=== PATIENT | female | born 1945 ===

== ENCOUNTER 2020-05-01 07:21 | Outpatient (CLI) | payer OTHER | END 2020-05-01 07:26 | disposition home or self-care (01) | LOC: RX STUDY 07:21 | PROVIDERS: ATTEND Colon & Rectal Surgery | DX: K57.20 Diverticulitis of large intestine with perforation and abscess without bleeding (principal) ==

== ENCOUNTER 2020-06-03 11:30 | Inpatient (IN) | payer OTHER ==
[~2020-06-03] VITALS: Ht 157.5 cm; Wt 44.9 kg
[2020-06-03] MEDS ORDERED: TENORMIN25 MG PO (14:42)
[2020-06-03] MEDS ORDERED: PLAVIX75 MG PO (14:42)
[2020-06-03] MEDS ORDERED: COZAAR100 MG PO (14:42)
[2020-06-03] MEDS ORDERED: HYDROCHLOROTHIA25 MG PO (14:43)
[2020-06-03] MEDS ORDERED: SIMVASTATIN PO (14:43)
[2020-06-03] MEDS ORDERED: TEMAZE PO (14:44)
[2020-06-04] MEDS ORDERED: RESTORIL7.5 MG (16:09)
[2020-06-04] MEDS ORDERED: SIMVASTATIN20 MG PO (16:09)
== END 2020-06-07 17:56 | disposition home or self-care (01) | DRG 331 ==
LOC: ADM 11:30 → O/R 06-04 10:38 → CIR.AMB 06-04 11:30 → SURH 06-04 11:30 → EDSTATUS 06-04 11:30 → SURH 06-04 16:53
PROVIDERS: ADMIT Colon & Rectal Surgery; ATTEND Colon & Rectal Surgery
PROC: 0DSK4ZZ Reposition Ascending Colon, Percutaneous Endoscopic Approach (ICD-10-PCS; 2020-06-04)
PROC: 0DBP4ZZ Excision of Rectum, Percutaneous Endoscopic Approach (ICD-10-PCS; 2020-06-04)
PROC: 0DB84ZZ Excision of Small Intestine, Percutaneous Endoscopic Approach (ICD-10-PCS; principal; 2020-06-04 20:45)
DX: Z43.3 Encounter for attention to colostomy (principal); K57.30 Diverticulosis of large intestine without perforation or abscess without bleeding; I11.9 Hypertensive heart disease without heart failure; J44.9 Chronic obstructive pulmonary disease, unspecified; Z20.822 Contact with and (suspected) exposure to COVID-19